=== PATIENT | male | born 1960 | race Caucasian/White ===

== ENCOUNTER 2016-07-06 15:46 | Emergency (ER) | payer SELFPAY ==
[~2016-07-06] VITALS: Ht 175.3 cm; Wt 75.0 kg
[2016-07-06 16:00] VITALS: BP 123/72; PULSE 99; RESP 16; TEMP 98; O2SAT 100; O2SAT 99
[2016-07-06] MEDS ORDERED: SODIUM CHLOR 0.9% 1000 ML INJ 1,000 ML IV ONE (16:27)
--- NOTE | 2016-07-06 16:29 | PD ---
HPI Chief Complaint: seizure Time Seen by Provider: 16:29 Travel History International Travel<30 days: No Contact w/Intl Traveler<30days: No Traveled to known affect area: No History of Present Illness HPI 56-year-old male with history of seizures in the past, not taking any medication , presents to emergency department for evaluation of a possible seizure at [facility]. Patient states that his last seizure was about 6 months ago. He recalls an aura preceding it which is typical for his seizures. He states he becomes disoriented and he needs to sit down but today he did not. Patient did strike his head. There is no stool or bladder incontinence. He denies HSV or tightness. No difficulty breathing. Patient denies any focal deficits or weakness. He denies any tobacco cigarette smoking. No illicit drug use. He does drink alcohol but not daily. Denies any other symptoms at this time. He is not up-to-date on his tetanus vaccination. [facility] Past Medical History Diminished Hearing: No Seizures: Yes Past Surgical History Gynecologic Surgery: No Tonsillectomy: Yes Social History Alcohol Use: Yes (occasional ) Tobacco Use: No Substance Use: No Allergies-Medications (Allergen,Severity, Reaction): Coded Allergies: Penicillin (Verified Allergy, Severe, Rash, 11/17/15) Reported Meds & Prescriptions Reported Meds & Active Scripts Active No Active Prescriptions or Reported Medications Review of Systems Except as stated in HPI: all other systems reviewed are Neg Physical Exam Narrative GENERAL: Well-nourished male patient, sitting up in bed, no acute distress SKIN: Warm and dry. HEAD: Laceration to the right posterior scalp Normocephalic. EYES: Pupils equal and round. No scleral icterus. No injection or drainage. ENT: No nasal bleeding or discharge. Mucous membranes pink and moist. Superficial bite yuni to the right lateral tongue. NECK: Trachea midline. No JVD. CARDIOVASCULAR: Regular rate and rhythm. No murmur appreciated. RESPIRATORY: No accessory muscle use. Clear to auscultation. Breath sounds equal bilaterally. GASTROINTESTINAL: Abdomen soft, non-tender, nondistended. Hepatic and splenic margins not palpable. MUSCULOSKELETAL: No obvious deformities. No clubbing. No cyanosis. No edema. NEUROLOGICAL: Awake and alert. No obvious cranial nerve deficits. Motor grossly within normal limits. Normal speech. PSYCHIATRIC: Appropriate mood and affect; insight and judgment normal. Data Data Last Documented VS Vital Signs Date Time Temp Pulse Resp B/P Pulse Ox O2 Delivery O2 Flow Rate FiO2 07/06/16 16:00 98.0 99 16 123/72 100 07/06/16 16:00 Room Air Orders Complete Blood Count With Diff (07/06/16 16:27) Alcohol (Ethanol) (07/06/16 16:27) Drug Screen, Random Urine (07/06/16 16:27) Electrocardiogram (07/06/16 ) Ct Brain W/O Iv Contrast(Rout) (07/06/16 ) Blood Glucose (07/06/16 16:27) Ecg Monitoring (07/06/16 16:27) Iv Access Insert/Monitor (07/06/16 16:27) Oximetry (07/06/16 16:27) Comprehensive Metabolic Panel (07/06/16 16:27) Sodium Chlor 0.9% 1000 Ml Inj (Ns 1000 M (07/06/16 16:27) Sodium Chloride 0.9% Flush (Ns Flush) (07/06/16 16:30) Urinalysis - C+S If Indicated (07/06/16 16:27) Ct Cerv Spine W/O Contrast (07/06/16 ) Magnesium (Mg) (07/06/16 16:27) Tetanus/Diphtheria Tox Adult (Tetanus/Di (07/06/16 16:30) Labs Laboratory Tests Test 07/06/16 16:30 White Blood Count 4.3 TH/MM3 Red Blood Count 4.06 MIL/MM3 Hemoglobin 12.7 GM/DL Hematocrit 37.4 % Mean Corpuscular Volume 92.1 FL Mean Corpuscular Hemoglobin 31.4 PG Mean Corpuscular Hemoglobin 34.1 % Concent Red Cell Distribution Width 15.3 % Platelet Count 122 TH/MM3 Mean Platelet Volume 8.2 FL Neutrophils (%) (Auto) 74.4 % Lymphocytes (%) (Auto) 14.8 % Monocytes (%) (Auto) 9.6 % Eosinophils (%) (Auto) 0.9 % Basophils (%) (Auto) 0.3 % Neutrophils # (Auto) 3.2 TH/MM3 Lymphocytes # (Auto) 0.6 TH/MM3 Monocytes # (Auto) 0.4 TH/MM3 Eosinophils # (Auto) 0.0 TH/MM3 Basophils # (Auto) 0.0 TH/MM3 CBC Comment DIFF FINAL Differential Comment Sodium Level 135 MEQ/L Potassium Level 3.3 MEQ/L Chloride Level 96 MEQ/L Carbon Dioxide Level 28.2 MEQ/L Anion Gap 11 MEQ/L Blood Urea Nitrogen 14 MG/DL Creatinine 1.36 MG/DL Estimat Glomerular Filtration 54 ML/MIN Rate Random Glucose 102 MG/DL Calcium Level 9.2 MG/DL Magnesium Level 1.8 MG/DL Total Bilirubin 0.6 MG/DL Aspartate Amino Transf 46 U/L (AST/SGOT) Alanine Aminotransferase 35 U/L (ALT/SGPT) Alkaline Phosphatase 98 U/L Total Protein 8.0 GM/DL Albumin 3.9 GM/DL Ethyl Alcohol Level 6 MG/DL [facility] Medical Decision Making Medical Screen Exam Complete: Yes Emergency Medical Condition: Yes Medical Record Reviewed: Yes Differential Diagnosis Seizure disorder versus electrolyte abnormality versus dehydration Narrative Course 56-year-old male presents to emergency department for evaluation following a possible seizure. Patient's father arrives at his bedside and explained that the patient drinks a large amount of alcohol frequently. Patient states he stopped drinking 2 days ago. EtOH is 6. CBC is without acute concern. CMP is with mild hypokalemia 3.3. Creatinine 36. GFR is 54. Last Impressions Head CT 07/06/16 0000 Signed Impressions: Service Date/Time: Wednesday, July 06, 2016 16:36 - CONCLUSION: No acute intracranial injury Mason Costa MD Cervical Spine CT 07/06/16 0000 Signed Impressions: Service Date/Time: Wednesday, July 06, 2016 16:36 - CONCLUSION: 1. Multilevel degenerative disc disease with loss of disc height at every cervical level. Bridging anterior osteophytes are seen at multiple cervical levels. 2. No acute fracture. 3. Encroachment on the spinal canal at C5-6 and C6-7 with no obvious cord compromise. 4. There is foraminal narrowing which may be severe enough to compromise bilateral C4, left C6, and left C7 nerve roots. Troy Lopez MD CT imaging of the head shows no acute intracranial abnormality. CT imaging of the cervical spine shows multilevel degenerative disc disease and loss of disc height with every cervical level. Bridging anterior osteophytes are seen at multiple cervical levels. No acute fracture. Encroachment on the spinal canal at C5 6, C6 7 with no obvious cord compromise. There is foraminal narrowing which may be severe enough to compromise bilateral C4, left C6, left C7 nerve roots. Patient is not reporting any radicular symptoms. I discussed the patient was mentioning physician Dr. Spaulding who recommends admission for monitoring while detoxing from alcohol. I discussed this with the patient. He states that he does not want to be admitted he has animals to take care of. He states that he will not drink anymore. I explained the patient that he will likely have a seizure again and experienced detox symptoms that could result in , but not limited to, paralysis or and if he chose to leave at this time it would be AGAINST MEDICAL ADVICE. Patient states that he understands this. He is leaving AGAINST MEDICAL ADVICE at this time. Procedures Procedure Narrative LACERATION LOCATION: Right posterior scalp LENGTH: 4.5 cm NUMBER OF STITCHES/UMU: 5 REPAIR: The area of the laceration was prepped with Betadine and sterilely draped. The wound was copiously irrigated and explored without evidence of foreign body, tendon injury or neurovascular injury. The wound was closed using umu. This was a single layer repair. A sterile dressing was applied. The patient was advised to keep the dressing clean and dry. Patient tolerated the procedure well. Diagnosis Primary Impression: Withdrawal seizures Qualified Code: F19.230 - Withdrawal seizures, uncomplicated Additional Impressions: Alcohol dependence Qualified Code: F10.239 - Alcohol dependence with withdrawal with complication Laceration of head without complication Qualified Code: S01.91XA - Laceration of head without complication, initial encounter Minor head injury Qualified Code: S00.90XA - Minor head injury, initial encounter Left against medical advice Referrals: [facility] (Out patient) Patient Instructions: Alcohol Dependence (ED), General Instructions Additional Instructions: It is important that you seek assistance with detox from alcohol. Aniwa are to be removed in 10 days A shower Return immediately with any acute worsening symptoms Med/Other Pt SpecificInfo: No Meds Exist/No RX given Scripts No Active Prescriptions or Reported Meds Disposition: 07 AGAINST MEDICAL ADVICE Condition: Stable Zelda Lim Jul 06, 2016 16:29
[2016-07-06] MEDS ORDERED: SODIUM CHLORIDE 0.9% FLUSH 10 ML FLUSH IVF PRN (16:30)
[2016-07-06] MEDS ORDERED: TETANUS/DIPHTHERIA TOXOID ADULT 0.5 ML VIAL IM ONE (16:30)
--- NOTE | 2016-07-06 17:02 | RADRPT ---
EXAM DATE/TIME: 07/06/2016 16:36 [facility] COMPARISON: CT BRAIN W/O CONTRAST, November 17, 2015, 21:10. INDICATIONS : Fell hit back of his head,laceration. RADIATION DOSE: 56.35 CTDIvol (mGy) MEDICAL HISTORY : Seizures. SURGICAL HISTORY : None. ENCOUNTER: Initial ACUITY: 1 day PAIN SCALE: 5/10 LOCATION: cranial TECHNIQUE: Multiple contiguous axial images were obtained of the head. Using automated exposure control and adj ustment of the mA and/or kV according to patient size, radiation dose was kept as low as reasonably a chievable to obtain optimal diagnostic quality images. FINDINGS: There is right parieto-occipital scalp swelling without evidence of underlying fracture. The brain is symmetric and normal with no evidence of mass or hemorrhage. No edema. Nothing to suggest acute infa rction. Mastoids and sinuses are clear. CONCLUSION: No acute intracranial injury Mason Costa MD on July 06, 2016 at 16:58 Board Certified Radiologist. This report was verified electronically.
[2016-07-06 17:06] LABS: AUTOMATED NEUTROPHIL # 3.2 TH/MM3 (1.8-7.7); BASOPHIL % 0.3 % (0.0-2.0); EOSINOPHIL % 0.9 % (0.0-4.0); HEMATOCRIT 37.4 % (39.0-51.0); HEMO FLAGS DIFF FINAL; LYMPH % 14.8 % (9.0-44.0); LYMPHOCYTE # 0.6 TH/MM3 (1.0-4.8); MEAN CELL VOLUME 92.1 FL (80.0-100.0); MEAN CORPUSCULAR HEMOGLOBIN 31.4 PG (27.0-34.0); MEAN CORPUSCULAR HGB CONC 34.1 % (32.0-36.0); MONO % 9.6 % (0.0-8.0); NEUT % 74.4 % (16.0-70.0); PLATELET COUNT 122 TH/MM3 (150-450); RED BLOOD COUNT 4.06 MIL/MM3 (4.50-5.90); RED CELL DISTRIBUTION WIDTH 15.3 % (11.6-17.2); WHITE BLOOD COUNT 4.3 TH/MM3 (4.0-11.0)
--- NOTE | 2016-07-06 17:25 | RADRPT ---
EXAM DATE/TIME: 07/06/2016 16:36 [facility] COMPARISON: No previous studies available for comparison. INDICATIONS : Fall hit back of head. RADIATION DOSE: 32.72 CTDIvol (mGy) MEDICAL HISTORY : Seizures. SURGICAL HISTORY : None. ENCOUNTER: Initial ACUITY: 1 day PAIN SCALE: 5/10 LOCATION: Neck TECHNIQUE: Volumetric scanning of the cervical spine was performed. Multiplanar reconstructions i n the sagittal, coronal and oblique axial planes were performed. Using automated exposure control a nd adjustment of the mA and/or kV according to patient size, radiation dose was kept as low as reason ably achievable to obtain optimal diagnostic quality images. FINDINGS: Sagittal and coronal reconstructions show multilevel degenerative disc disease with los s of disc height at every cervical level. Bridging anterior osteophytes are also seen at multiple ce rvical levels. Vertebral body heights are maintained without fracture or listhesis. Uncovertebral r idging is most prominent anteriorly but there is a posterior component at both C5-6 and C6-7 which en croaches on the anterior epidural space. Detailed axial images as follows: C2-C3: Uncovertebral ridging most prominent anteriorly. Spinal canal and neural foramina are patent . C3-C4: Diffuse uncovertebral ridging. There is encroachment on both neural foramina which may compr omise exiting C4 nerve roots. Minimal encroachment on the anterior epidural space but the spinal can al is adequate. C4-C5: Uncovertebral ridging most prominent anteriorly. Spinal canal and neural foramina are patent. C5-C6: Diffuse uncovertebral ridging. This is most severe anteriorly but there is some encroachment on both neural foramina, left greater than right. There is also encroachment on the anterior epidur al space with no cord compromise. The right neural foramina I believe is adequate. C6-C7: Uncovertebral ridging is diffuse with the posterior component encroaching on the anterior epi dural space and displacing the cord posteriorly. There is narrowing of the left neural foramina with possible compromise of the left C7 nerve root. Right neural foramina is adequate. C7-T1: Uncovertebral ridging most prominent right anterior. There is facet hypertrophy but the spi nal canal and neural foramina remain adequate. CONCLUSION: 1. Multilevel degenerative disc disease with loss of disc height at every cervical level. Bridging a nterior osteophytes are seen at multiple cervical levels. 2. No acute fracture. 3. Encroachment on the spinal canal at C5-6 and C6-7 with no obvious cord compromise. 4. There is foraminal narrowing which may be severe enough to compromise bilateral C4, left C6, and l eft C7 nerve roots. Troy Lopez MD on July 06, 2016 at 17:10 Board Certified Radiologist. This report was verified electronically.
[2016-07-06 17:28] LABS: ALT (GPT) 35 U/L (12-78); ANION GAP 11 MEQ/L (5-15); AST (GOT) 46 U/L (15-37); BICARBONATE 28.2 MEQ/L (21.0-32.0); BLOOD UREA NITROGEN 14 MG/DL (7-18); CHLORIDE 96 MEQ/L (98-107); GLOMERULAR FILTRATION RATE 54 ML/MIN (>89); MAGNESIUM 1.8 MG/DL (1.5-2.5); POTASSIUM 3.3 MEQ/L (3.5-5.1); SODIUM (NA) 135 MEQ/L (136-145)
[2016-07-06 17:30] LABS: ALKALINE PHOSPHATASE 98 U/L (45-117); TOTAL BILIRUBIN ADULT 0.6 MG/DL (0.2-1.0)
[2016-07-06 18:45] LABS: BACTERIA, URINE RARE /hpf; BLOOD, URINE NEG (NEG); COMMENT (UR) CULT NOT INDICATED; CULTURE IF INDICATED CULT NOT INDICATED; GLUCOSE,URINE NEG (NEG); KETONE, URINE NEG (NEG); MUCUS URINE FEW /lpf (OCC); NITRITE,URINE NEG (NEG); URINE COLOR LIGHT-YELLOW (YELLW/STRAW)
[2016-07-06 18:49] LABS: AMPHETAMINE, URINE NEG (NEG); BARBITURATES, URINE NEG (NEG); COCAINE, URINE NEG (NEG)
--- NOTE | 2016-07-07 20:05 | EKG ---
Date Performed: 07/06/2016 Time Performed: 17:01:06 PTAGE: 56 years EKG: Sinus rhythm When compared to previous tracing, sinus rate is slower. Minor ST changes have improved. NORMAL ECG PREVIOUS TRACING : 11/17/2015 20.55 DOCTOR: Anuj Agarwal Interpretating Date/Time 07/07/2016 20:05:15
== END 2016-07-06 18:50 | disposition left against medical advice (07) ==
LOC: NEPE 15:46
DX: R56.9 Unspecified convulsions (principal); F10.239 Alcohol dependence with withdrawal, unspecified; S01.01XA Laceration without foreign body of scalp, initial encounter; S00.90XA Unspecified superficial injury of unspecified part of head, initial encounter; X58.XXXA Exposure to other specified factors, initial encounter
CPT/HCPCS: 12002; 70450; 72125; 80053; 80307; 81001; 83735; 85025; 90471; 90714; 93005; 96360; 96361; 99284; J7030